=== PATIENT | female | born 1990 | race Caucasian/White ===

== ENCOUNTER 2020-11-13 16:12 | Emergency (ER) | payer MEDICAID, SELFPAY ==
[2020-11-13 16:13] VITALS: BP 128/79; PULSE 109; RESP 20; TEMP 36.6; O2SAT 96; BMI 29.0
[2020-11-13 16:40] VITALS: BP 128/79; PULSE 109; RESP 20; TEMP 36.6; O2SAT 96
[2020-11-13 16:50] VITALS: O2SAT 98
--- NOTE | 2020-11-13 17:33 | EX.ED.VIS.UR ---
HPI HPI - URI History of Present Illness Chief Complaint: Cough Informant: patient Onset/Context/Timing Current Severity: Mild Narrative Narrative: Patient presents with a few days of cough. No real productivity of sputum. No hemoptysis. No chest pain. No wheezing. She is concerned that she either has pneumonia or Covid as she is in a community living center. She does not have history of asthma. Nothing really makes her symptoms better or worse. Her daughter has some very mild versions of the same symptoms but seems to be getting better. Patient really brought her daughter in to be seen for a swollen knee. Because she was here she figured she should be evaluated also. ROS ROS ED Constitutional Constitutional ED: Denies chills or fever(s) Eyes Eyes: Denies blurry vision ENT ENT ED: Reports rhinorrhea; Denies ear pain or sore throat Cardiovascular Cardiovascular: Denies chest pain, orthopnea or paroxysmal nocturnal dyspnea Respiratory/Chest Respiratory/Chest: Reports cough; Denies dyspnea, dyspnea on exertion, orthopnea, paroxysmal nocturnal dyspnea or sputum Gastrointestinal Gastrointestinal: Denies abdominal pain, nausea or vomiting Musculoskeletal Musculoskeletal: Denies arthralgias or myalgias Integumentary Denies rash Neurologic Neurologic: Denies headache(s) Endocrine Endocrinology: Denies polydipsia or polyuria Allergic/Immunologic Allergic/Immunologic ED: Denies mouth swelling, tongue swelling or urticaria PFSH PFSH Home Medications buspirone 10 mg PO TID 03/14/14 [History Last Taken Unknown] hydroxyzine pamoate 25 mg PO TID PRN PRN #14 capsule 03/14/14 [Rx Last Taken Unknown] Allergy/AdvReac Type Severity Reaction Status Date / Time promethazine HCl AdvReac Other Verified 11/13/20 16:15 [From Phenergan] Social History Smoking Status: Current every day smoker tobacco type: cigarettes EXAM Physical Exam Const Vital Signs: 11/13/20 16:13 11/13/20 16:40 11/13/20 16:50 Temperature 97.8 F 97.8 F Temperature Source Temporal Temporal Pulse Rate 109 H 109 H Respiratory Rate 20 H 20 H Respiratory Effort Normal Non-Labored Respiratory Depth Normal Respiratory Pattern Normal Blood Pressure 128/79 H 128/79 H Blood Pressure Mean 95 95 Pulse Ox 96 96 Oxygen Delivery Method Room Air Room Air Room Air Positive well nourished and well developed General Appearance ED: well developed and NAD; Negative for cyanotic or diaphoretic HEENT normocephalic and atraumatic External Ear: external ears normal Eyes PERRL and EOMs intact bilaterally Neck supple and no meningeal signs Resp normal respiratory effort and clear to auscultation bilaterally Auscultation: Negative for rales, rhonchi or wheezes Cardio Rate: regular rate Rhythm: regular rhythm GI non-tender and non-distended Palpation: soft Back/Spine no CVA tenderness Extremity normal to inspection and full ROM General Extremety ED: Negative for tenderness Neuro oriented x3 Sensorium / Orientation: alert Skin Rashes: no rashes MDM MDM MDM Narrative Medical decision making narrative: Patient's rapid and Covid is negative. Chest x-ray is negative. We were going to go back and talk to the patient. She left as she needed to get something to eat evidently. I was not able to discuss with her final disposition. Radiography Diagnostic Testing: Radiology Impression Chest X-Ray 11/13/20 17:45 IMPRESSION: Normal x-ray examination of the chest. Electronically Signed: Adonis Grijalva MD ([facility]) at 18:04 EDT , Service support , Discharge Plan Triage Chief Complaint: Cough ED Provider: Lisandro Washington Dx/Rx/DC Orders Clinical Impression: URI (upper respiratory infection) Prescriptions: No Action buspirone 5 MG tablet 10 mg PO TID RF: 0 hydroxyzine pamoate 25 MG capsule 25 mg PO TID PRN PRN (Reason: Anxiety) Qty: 14 RF: 0 Primary Care Provider: Care Physician,No Primary Referrals: Care Physician,No Primary [Primary Care Provider] - Disposition Disposition: Elopement
--- NOTE | 2020-11-13 17:45 | RAD_ITS ---
STUDY: X-RAY CHEST REASON FOR EXAM: Female, 30 years old. cough TECHNIQUE: PA and lateral views of the chest. COMPARISON: None. FINDINGS: The lungs are clear and expanded. There is no demonstrated pleural abnormality. Normal size heart. Normal mediastinum and jose. Normal visualized pulmonary arteries. Normal visualized aortic arch and descending thoracic aorta. Normal visualized thoracic spine. Normal visualized ribs, clavicles, and shoulders. There is no demonstrated abnormality of the visualized soft tissue structures of the upper abdomen. RAD/Chest PA and Lateral IMPRESSION: Normal x-ray examination of the chest. Electronically Signed: Adonis Grijalva MD ([facility]) at 18:04 EDT , Service support ,
== END 2020-11-13 19:42 | disposition left against medical advice (07) ==
PROVIDERS: Emergency Provider Emergency Medicine
DX: J06.9 Acute upper respiratory infection, unspecified (principal); Z20.822 Contact with and (suspected) exposure to COVID-19; F17.210 Nicotine dependence, cigarettes, uncomplicated; Z79.899 Other long term (current) drug therapy
CPT/HCPCS: 71046; 87426; 99281; 99282